=== PATIENT | male | born 1980 | race Caucasian/White ===

== ENCOUNTER → 2020-04-28 08:36 | Outpatient (CLI) | payer OTHER, SELFPAY ==
[2020-04-28 11:30] LABS: COVID19 -Nasal RAPID Negative (Negative)
== END ==
PROVIDERS: Visit Provider Family Medicine Sleep Medicine
DX: Z20.822 Contact with and (suspected) exposure to COVID-19 (principal)
CPT/HCPCS: 87635; C9803

== ENCOUNTER → 2020-05-20 13:43 | Outpatient (CLI) | payer OTHER, SELFPAY ==
[2020-05-20 16:18] LABS: COVID19 -Nasal RAPID Negative (Negative)
== END ==
PROVIDERS: Visit Provider Family Medicine Sleep Medicine
DX: Z20.822 Contact with and (suspected) exposure to COVID-19 (principal)
CPT/HCPCS: 87635; C9803